=== PATIENT | male | born 1955 | race Caucasian/White ===

== ENCOUNTER → 2023-02-08 | Outpatient (CLI) | payer MEDICARE ==
[~2023-02-08] MED LIST: HYDROCHLOROTHIA1 T14 PO
== END ==
LOC: RAD 11:16
DX: R05.9 Cough, unspecified (principal)

== ENCOUNTER → 2023-07-18 | Outpatient (CLI) | payer MEDICARE | LOC: RAD 11:05 | DX: Z13.6 Encounter for screening for cardiovascular disorders (principal) ==

== ENCOUNTER → 2023-08-01 | Outpatient (CLI) | payer MEDICARE ==
[2023-08-01 11:41] LABS: CALCIUM 9.8 mg/dL (8.3-10.5)
[2023-08-01 21:53] LABS: HEPATITIS C VIRUS ANTIBODY Negative (Negative)
== END ==
LOC: LAB 11:19
PROVIDERS: Family Medicine
DX: Z12.5 Encounter for screening for malignant neoplasm of prostate (principal); Z11.4 Encounter for screening for human immunodeficiency virus [HIV]; Z11.59 Encounter for screening for other viral diseases; I10 Essential (primary) hypertension

== ENCOUNTER → 2024-01-28 | Outpatient (CLI) | payer MEDICARE ==
[2024-01-28 09:27] LABS: CALCIUM 9.4 mg/dL (8.3-10.5)
== END ==
LOC: LAB 08:58
PROVIDERS: Family Medicine
DX: I10 Essential (primary) hypertension (principal); E78.41 Elevated Lipoprotein(a)